=== PATIENT | male | born 1985 | race Caucasian/White ===

== ENCOUNTER 2017-03-18 13:39 | Emergency (ER) | payer MEDICAID ==
[2017-03-18] MEDS ORDERED: Ketorolac 60 MG/2 ML SDV IM ONE (14:36)
--- NOTE | 2017-03-18 14:40 | EDM.PDOC ---
ED HPI GENERAL MEDICAL PROBLEM - General Chief Complaint: General Stated Complaint: VOMITTING; BACK PAIN Time Seen by Provider: 03/18/17 14:32 Source of Information: Reports: Patient, RN Notes Reviewed History Limitations: Reports: No Limitations - History of Present Illness INITIAL COMMENTS - FREE TEXT/NARRATIVE: 31-year-old gentleman presents emergency department day complaint of fever and body aches he's been ill for about 12 hours did not get a flu shot this year - Related Data Allergies Allergy/AdvReac Type Severity Reaction Status Date / Time No Known Allergies Allergy Verified 03/18/17 14:11 Home Meds: Home Meds NK [No Known Home Meds] 03/18/17 [History] Past Medical History - Past Surgical History Musculoskeletal Surgical History: Reports: Arthroscopic Knee Social & Family History - Tobacco Use Smoking Status *Q: Current Every Day Smoker Years of Tobacco use: 14 Packs/Tins Daily: 0.1 ED ROS GENERAL - Review of Systems Review Of Systems: See Below Constitutional: Reports: Fever HEENT: Reports: No Symptoms Respiratory: Reports: No Symptoms Cardiovascular: Reports: No Symptoms GI/Abdominal: Reports: Nausea, Vomiting Musculoskeletal: Reports: Muscle Pain, Muscle Stiffness ED EXAM, GENERAL - Physical Exam Exam: See Below Exam Limited By: No Limitations General Appearance: Alert, WD/WN, No Apparent Distress Ears: Normal External Exam, Normal Canal, Hearing Grossly Normal, Normal TMs Nose: Normal Inspection, Normal Mucosa, No Blood Throat/Mouth: Normal Inspection, Normal Lips, Normal Teeth, Normal Gums, Normal Oropharynx, Normal Voice, No Airway Compromise Head: Atraumatic, Normocephalic Neck: Normal Inspection, Supple, Non-Tender, Full Range of Motion Respiratory/Chest: No Respiratory Distress, Lungs Clear, Normal Breath Sounds, No Accessory Muscle Use Cardiovascular: Regular Rate, Rhythm, No Murmur Course - Vital Signs Last Recorded V/S: Last Vital Signs Temp 100.8 F H 03/18/17 14:11 Pulse 102 H 03/18/17 14:11 Resp 18 03/18/17 14:11 BP 134/71 03/18/17 14:20 Pulse Ox 98 03/18/17 14:11 - Orders/Labs/Meds Orders: Active Orders 24 hr Category Date Time Status Ketorolac [Toradol] Med 03/18/17 14:36 Once 60 mg IM ONETIME ONE Departure - Departure Time of Disposition: 14:39 Disposition: Home, Self-Care 01 Condition: Good Clinical Impression: Viral syndrome - Discharge Information Referrals: PCP,None [Primary Care Provider] - Additional Instructions: Take full course of Tamiflu, use Zofran as needed for nausea and vomiting symptoms, use ibuprofen naproxen or Tylenol as needed for muscle pain, Please followup with your primary care provider in 5-7 days if not better, please call return to the emergency department with worsening of symptoms. - My Orders Last 24 Hours: My Active Orders 03/18/17 14:36 Ketorolac [Toradol] 60 mg IM ONETIME ONE - Assessment/Plan Last 24 Hours: My Active Orders 03/18/17 14:36 Ketorolac [Toradol] 60 mg IM ONETIME ONE Plan: Assessment Acuity = acute Site and laterality = viral syndrome Etiology = suspicious for influenza A Manifestations = nausea, vomiting Location of injury = Home Lab values = none Plan Because of problems influenza A in the area will treat empirically with Tamiflu 75 mg by mouth twice a day 5 days for symptomatic relief he was given a shot of Toradol while in the ED prescription written for Zofran 4 mg ODT by mouth 3 times a day total #5 follow-up primary care 5-7 days if no improvement This note was dictated using [employer] voice recognition software please call with any questions on syntax or prieto.
== END 2017-03-18 15:08 | disposition home or self-care (01) ==
LOC: JP.ED 13:39
DX: B34.9 Viral infection, unspecified (principal); F17.210 Nicotine dependence, cigarettes, uncomplicated
CPT/HCPCS: 96372; 99283; J1885

== ENCOUNTER 2018-03-17 19:04 | Emergency (ER) | payer MEDICAID ==
[2018-03-17] MEDS ORDERED: LORazepam 2 MG/ML SDV IVPUSH ONE (20:15)
[2018-03-17] MEDS ORDERED: Sodium Chloride 0.9% 10 ML Syringe FLUSH PRN (20:15)
[2018-03-17] MEDS ORDERED: HYDROmorphone 1 MG/ML Syringe IM ONE (20:40)
[2018-03-17] MEDS ORDERED: HYDROmorphone 1 MG/ML Syringe ONE (20:41)
--- NOTE | 2018-03-17 21:15 | EDM.PDOC ---
ED HPI GENERAL MEDICAL PROBLEM - General Chief Complaint: Upper Extremity Injury/Pain Stated Complaint: LEFT SHOULDER INJURED WHILE SNOW BOARDING Time Seen by Provider: 03/17/18 20:00 Source of Information: Reports: Patient History Limitations: Reports: No Limitations - History of Present Illness INITIAL COMMENTS - FREE TEXT/NARRATIVE: This patient was snowboarding he called the edge flipped over and landed on his left shoulder. Complains of pain and deformity. The before meals joint. Happened shortly prior to arrival. left shoulder Pain Score (Numeric/FACES): 4 - Related Data Allergies Allergy/AdvReac Type Severity Reaction Status Date / Time No Known Allergies Allergy Verified 03/17/18 19:39 Home Meds: Home Meds NK [No Known Home Meds] 03/18/17 [History] Past Medical History - Past Surgical History Musculoskeletal Surgical History: Reports: Arthroscopic Knee Social & Family History - Tobacco Use Smoking Status *Q: Never Smoker Review of Systems - Review of Systems Review Of Systems: ROS reveals no pertinent complaints other than HPI. ED EXAM, GENERAL - Physical Exam Exam: See Below Exam Limited By: No Limitations General Appearance: Alert, WD/WN, Mild Distress Eye Exam: Bilateral Eye: Normal Inspection Extremities: Other (Elevation of the clavicle consistent with an acromioclavicular separation. Range of motion of the shoulder limited by the before meals pain nothing to suggest the shoulder dislocation. Neurovascular tendon all intact.) Course - Vital Signs Last Recorded V/S: Last Vital Signs Temp 36.3 C 03/17/18 19:43 Pulse 83 03/17/18 19:43 Resp 14 03/17/18 19:43 BP 122/76 03/17/18 19:43 Pulse Ox 98 03/17/18 19:43 - Orders/Labs/Meds Orders: Active Orders 24 hr Category Date Time Status Clavicle Lt [CR] Stat Exams 03/17/18 20:28 Taken Shoulder Comp Lt [CR] Stat Exams 03/17/18 20:04 Taken Sodium Chloride 0.9% [Saline Flush] Med 03/17/18 20:15 Active 10 ml FLUSH ASDIRECTED PRN Saline Lock Insert [OM.PC] Urgent Oth 03/17/18 20:15 Ordered Medication Orders Sodium Chloride (Saline Flush) 10 ml FLUSH ASDIRECTED PRN PRN Reason: Keep Vein Open Meds: Medications Generic Name Dose Route Start Last Admin Trade Name Ewa PRN Reason Stop Dose Admin Sodium Chloride 10 ml 03/17/18 20:15 Saline Flush FLUSH ASDIRECTED PRN Keep Vein Open Discontinued Medications Generic Name Dose Route Start Last Admin Trade Name Ewa PRN Reason Stop Dose Admin Hydromorphone HCl 1 mg 03/17/18 20:40 03/17/18 20:45 Dilaudid IM 03/17/18 20:41 1 mg ONETIME ONE Administration Hydromorphone HCl Confirm 03/17/18 20:41 Dilaudid Administered 03/17/18 20:42 Dose 1 mg .ROUTE .STK-MED ONE Lorazepam 2 mg 03/17/18 20:15 Ativan IVPUSH 03/17/18 20:16 ONETIME ONE - Radiology Interpretation Free Text/Narrative:: X-ray shows before meals separation probably a type III. I don't think there is any posterior displacement on exam or on x-ray. - Re-Assessments/Exams Free Text/Narrative Re-Assessment/Exam: 03/17/18 21:12 Patient received Dilaudid 1 mg IM gave good pain relief. Sling was applied as well as ice. Departure - Departure Time of Disposition: 21:12 Disposition: Home, Self-Care 01 Condition: Fair Clinical Impression: Acromioclavicular joint separation, type 3 - Discharge Information Referrals: PCP,None [Primary Care Provider] - Additional Instructions: Wear the sling for comfort. Apply ice. For pain take Percocet 5/325 one or 2 tablets every 4 hours. (#20) this medication can cause sedation and impair driving and can lead to addiction. Follow-up in a few days with the orthopedic surgeon in [place]. They will have a copy of your x-rays. If you want to go to somebody else you need to supervisor opening and picking the x-rays on disc from our radiology Department. - My Orders Last 24 Hours: My Active Orders 03/17/18 20:04 Shoulder Comp Lt [CR] Stat 03/17/18 20:15 Sodium Chloride 0.9% [Saline Flush] 10 ml FLUSH ASDIRECTED PRN Saline Lock Insert [OM.PC] Urgent 03/17/18 20:28 Clavicle Lt [CR] Stat - Assessment/Plan Last 24 Hours: My Active Orders 03/17/18 20:04 Shoulder Comp Lt [CR] Stat 03/17/18 20:15 Sodium Chloride 0.9% [Saline Flush] 10 ml FLUSH ASDIRECTED PRN Saline Lock Insert [OM.PC] Urgent 03/17/18 20:28 Clavicle Lt [CR] Stat
--- NOTE | 2018-03-18 09:01 | CR ---
Shoulder Comp Lt CLINICAL HISTORY: Before meals separation FINDINGS: There is no acute fracture. There is widening of the AC joint with some elevation of the distal clavicle. Impression: AC separation
--- NOTE | 2018-03-18 09:02 | CR ---
Clavicle Lt CLINICAL HISTORY: Before meals separation FINDINGS: There is no acute fracture within the clavicle. The AC joint is widened. IMPRESSION: No fracture Acromioclavicular dislocation
== END 2018-03-17 21:43 | disposition home or self-care (01) ==
LOC: JP.ED 19:04
DX: S43.102A Unspecified dislocation of left acromioclavicular joint, initial encounter (principal); V00.311A Fall from snowboard, initial encounter; Y93.23 Activity, snow (alpine) (downhill) skiing, snowboarding, sledding, tobogganing and snow tubing
CPT/HCPCS: 73000; 73030; 96372; 99284; J1170

== ENCOUNTER 2020-05-24 06:32 | Day surgery (SDC) | payer MEDICAID ==
[~2020-05-24 06:32] MED LIST: Sodium Chloride 0.9% 1,000 ML IV SCH
[2020-05-24] MEDS ORDERED: Propofol 200 MG/20 ML SDV ONE (07:07)
[2020-05-24] MEDS ORDERED: fentaNYL 100 MCG/2 ML SDV ONE (07:07)
[2020-05-24] MEDS ORDERED: Midazolam 1 MG/ML 2 ML SDV ONE (07:08)
--- NOTE | 2020-05-24 09:33 | OR ---
DATE OF PROCEDURE: 05/24/2020 SURGEON: Ruddy Fonseca MD PROCEDURE: Esophagogastroduodenoscopy. FINDINGS: Mild inflammation in the GE junction concerning for gastroesophageal reflux disease. COMPLICATIONS: None. INDUSTRIAL ENGINEER: None. PREOPERATIVE DIAGNOSIS: Epigastric pain concerning for reflux disease. POSTOPERATIVE DIAGNOSIS: Epigastric pain concerning for reflux disease. RISKS: Risks, benefits, alternatives, and limitations including, but not limited to infection, bleeding, perforation, false positives, and false negatives were explained the patient, who wished to proceed. PROCEDURE IN DETAIL: The patient was placed in the left lateral decubitus position. The EGD scope was introduced and advanced atraumatically to the duodenum. No evidence of duodenitis or ulceration. Within the stomach itself, there was no gastritis. No hiatal hernia was noted on retroflexion. There was mild inflammation proximal to the GE junction concerning for reflux disease. This was biopsied in all 4 quadrants multiple times. The air was removed from the stomach. The esophagus was inspected without abnormality. The patient tolerated the procedure well. Ruddy Fonseca MD /[id number]
== END 2020-05-24 09:10 | disposition home or self-care (01) ==
LOC: JP.SDS 06:32
PROVIDERS: ATTEND Surgery
DX: K29.70 Gastritis, unspecified, without bleeding (principal); K21.9 Gastro-esophageal reflux disease without esophagitis
CPT/HCPCS: J2250; J2704; J3010; J7030

== ENCOUNTER 2022-09-09 23:30 | Emergency (ER) | payer MEDICAID ==
[2022-09-09] MEDS ORDERED: Sodium Chloride 0.9% 10 ML Syringe FLUSH PRN (23:48)
[2022-09-09] MEDS ORDERED: TRANEXAMIC ACID IV ONE (23:49)
[2022-09-09] MEDS ORDERED: SODIUM CHLORIDE 0.9% IV ONE (23:49)
[2022-09-09] MEDS ORDERED: fentaNYL 100 MCG/2 ML SDV IVPUSH ONE (23:49)
[2022-09-10 00:10] LABS: BASOPHILS ABSOLUTE AUTO 0.06 K/uL (0.00-0.10); BASOPHILS PERCENT AUTO 0.5 % (0.1-1.3); EOSINOPHILS ABSOLUTE AUTO 0.12 K/uL (0.00-0.40); HEMATOCRIT 44.8 % (38.4-49.7); HEMOGLOBIN 15.8 g/dL (12.9-16.9); IMMATURE GRAN ABSOLUTE AUTO 0.19 K/uL (0.00-0.23); IMMATURE GRAN PERCENT AUTO 1.6 % (0.0-0.7); LYMPHOCYTES ABSOLUTE AUTO 2.88 K/uL (0.8-3.3); MEAN CORPUSCULAR HEMOGLOBIN 33.1 pg (31.6-35.5); MEAN CORPUSCULAR HGB CONC 35.3 g/dL (31.6-35.5); MEAN CORPUSCULAR VOLUME 93.9 fL (81.4-99.0); MONOCYTES ABSOLUTE AUTO 0.79 K/uL (0.20-0.90); MONOCYTES PERCENT AUTO 6.6 % (3.3-12.6); NEUTROPHILS ABSOLUTE AUTO 7.96 K/uL (1.0-7.6); NEUTROPHILS PERCENT AUTO 66.3 % (40.0-78.1); PLATELET COUNT,PLT 369 K/uL (130-375); RED BLOOD CELL COUNT 4.77 M/uL (4.14-5.76)
[2022-09-10 00:21] LABS: CALCIUM 8.6 mg/dL (8.5-10.1); CREATININE 1.1 mg/dL (0.8-1.3); EST CRCL DRUG DOSING (CG) 95.3 mL/min; POTASSIUM,K 3.4 mmol/L (3.6-5.2)
[2022-09-10] MEDS ORDERED: Ondansetron 4 MG/2 ML SDV IVPUSH ONE (00:22)
[2022-09-10 00:24] LABS: ANION GAP 13.4 mmol/L (5.0-14.0)
[2022-09-10] MEDS ORDERED: HYDROmorphone 0.5 MG/0.5 ML Syringe IVPUSH ONE ×2 (01:33→02:35)
[2022-09-10] MEDS ORDERED: Ampicillin/Sulbactam Na 3 GM in Sodium Chloride 0.9% 100 ML IV ONE (02:30)
[2022-09-10] MEDS ORDERED: Sodium Chloride 0.9% 1,000 ML IV SCH (03:00)
== END 2022-09-10 03:23 ==
LOC: JP.ED 23:30
DX: S02.67 Fracture of alveolus of mandible (principal); S03.2XXA Dislocation of tooth, initial encounter; K21.9 Gastro-esophageal reflux disease without esophagitis; Z79.899 Other long term (current) drug therapy; W22.8XXA Striking against or struck by other objects, initial encounter
CPT/HCPCS: 36415; 70450; 70486; 72125; 76377; 80048; 80307; 85025; 87635; 96365; 96375; 99285; J0295; J1170; J2405; J3010; J3490; J7030; J7040; U0002